=== PATIENT | female | born 1995 | race Caucasian/White ===

== ENCOUNTER 2020-09-29 00:26 | Day surgery (SDC) | payer OTHER, SELFPAY ==
[2020-09-11 14:04] VITALS: BMI 22.6
[2020-09-29 06:36] VITALS: PULSE 86; RESP 18; TEMP 36.1; O2SAT 100; BMI 20.5
[2020-09-29] MEDS: LACTATED RINGERS 1,000 ML 150 ML IV CONT (06:46)
--- NOTE | 2020-09-29 07:57 | WPDGICN ---
Assessment and Plan Assessment and plan (1) Abdominal pain: Qualifiers: Abdominal location: lower abdomen, unspecified Qualified Code(s): R10.30 - Lower abdominal pain, unspecified Code(s): R10.9 - Unspecified abdominal pain Status: Acute Assessment and Plan: Patient has suprapubic abdominal pain. Bloating and cramping in nature. Agree with trial of Bentyl. Will add fiber. Colonoscopy has been arranged will be performed today to exclude organic disease. Irritable bowel syndrome could be a possibility. (2) Loose stools: Code(s): R19.5 - Other fecal abnormalities Status: Acute Assessment and Plan: Patient with intermittent diarrhea. Appears most consistent with irritable bowel syndrome. Patient does have a family history of ulcerative colitis in a more distant history of colon cancer. Plan is for colonoscopy at this time. Plan is for a trial of fiber with supplementation. Further recommendations may be given after endoscopy. GI Consult Note Consult date/time: 09/29/20 07:57 HPI: Erica Wiley is a 24 year old female Presents for colonoscopy. Patient has had significant diarrhea over the last 1 year. Occurs intermittently. She denies any bleeding. She describes a suprapubic abdominal pain. This is crampy in feels bloated. No help with Gas-X. No help with trial of probiotics. She has taken Bentyl and Imodium with some relief. Her family history is significant her father had ulcerative colitis. Grandfather had colon cancer. Patient presents today for colonoscopy because of ongoing abdominal complaints. Review of Systems Review of Systems: All systems reviewed & are unremarkable except as noted in HPI and below PMFSH Past Medical History Medical History Anxiety Depressed Depression GERD (gastroesophageal reflux disease) Tobacco abuse Surgical History Surgical History No history of previous surgery Family History Family History Father Alcohol abuse Depression Anxiety Mother Alcohol abuse Depression Anxiety Ulcerative colitis Sibling Asthma Depression Anxiety Grandparent Alcohol abuse Diabetes mellitus Hypertension Cerebrovascular accident Stomach ulcer Colon cancer Thyroid condition Acute Crohn's disease Social History Social History Social History: Single. Lives with her brother, [id number] and their 2 children in [place]. Originally from [place], [place] moved here 10/2019. 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 Smoking status: Current every day smoker Tobacco type: e-cigarettes/vaping Additional smoking assessment comments: Vaping for 1 year Alcohol intake: current Alcohol use details: OCCATIONALLY Substance use: current Substance use type: marijuana Living arrangements: with roommate(s) Gender identity (if verbalized by the patient): Female Spiritual care concerns: No Meds Home Medications and Allergies Home Medications Medication Instructions Recorded Confirmed Type levonorgestrel 1 device INTRAUTERINE ONCE 07/03/20 09/29/20 History vsamireb-hvp-mxvy-FA-Ca carb-vit K 1 tablet PO DAILY 07/03/20 09/29/20 History 18 mg iron-400 mcg-500 mg tablet spironolactone 100 mg tablet 100 mg PO DAILY 07/03/20 09/29/20 History fluoxetine 20 mg capsule 20 mg PO DAILY #90 cap 07/31/20 09/29/20 Rx dicyclomine 20 mg tablet 20 mg PO QID PRN #60 tablet 08/27/20 09/29/20 Rx dextroamphetamine-amphetamine 5 mg 5 mg PO BID #60 tablet 09/18/20 09/29/20 Rx tablet Allergies Allergy/AdvReac Type Severity Reaction Status Date / Time No Known Drug Allergies Allergy Unknown none Verified 09/29/20 06:34 Vital Signs Vital Signs - 24 hr
[2020-09-29 08:00] VITALS: BP 102/62; PULSE 75; RESP 14; O2SAT 98
[2020-09-29 08:10] VITALS: BP 103/60; PULSE 66; RESP 16; O2SAT 99
[2020-09-29 08:20] VITALS: BP 95/59; PULSE 51; RESP 20; O2SAT 100
--- NOTE | 2020-10-19 11:30 | WPDANESEPPF ---
Anes - Initial Pre Proc Eval Procedure: Operation Date: 09/29/20 07:30 Proposed Procedures p Colonoscopy - Nik Miranda MD Date/Time: 10/19/20 11:30 Surgeon: Nik Miranda MD Pre Op Diagnosis: Diarrhea Patient Data Age: 25 Gender: F Height: 1.65 m Weight: 55.8 kg Last Vital Signs Temp 97 F L 09/29/20 06:36 Pulse 51 L 09/29/20 08:20 Resp 20 09/29/20 08:20 BP 95/59 L 09/29/20 08:20 Pulse Ox 100 09/29/20 08:20 Allergies Allergy/AdvReac Type Severity Reaction Status Date / Time No Known Drug Allergies Allergy Unknown none Verified 10/16/20 08:16 Home Medications Medication Instructions Recorded Confirmed Type levonorgestrel 1 device INTRAUTERINE ONCE 07/03/20 10/16/20 History wfluizsk-qfb-azmd-FA-Ca carb-vit K 1 tablet PO DAILY 07/03/20 10/16/20 History 18 mg iron-400 mcg-500 mg tablet fluoxetine 20 mg capsule 20 mg PO DAILY #90 cap 07/31/20 10/16/20 Rx dicyclomine 20 mg tablet 20 mg PO QID PRN #60 tablet 08/27/20 10/16/20 Rx dextroamphetamine-amphetamine 5 mg 5 mg PO BID #60 tablet 10/16/20 10/16/20 Rx tablet Patient hx anesthesia problems: none Family hx anesthesia problems: none PMFSH Past Medical History Medical History Anxiety Depressed Depression GERD (gastroesophageal reflux disease) Tobacco abuse Surgical History Surgical History No history of previous surgery Family History Family History Father Alcohol abuse Depression Anxiety Mother Alcohol abuse Depression Anxiety Ulcerative colitis Sibling Asthma Depression Anxiety Grandparent Alcohol abuse Diabetes mellitus Hypertension Cerebrovascular accident Stomach ulcer Colon cancer Thyroid condition Acute Crohn's disease Social History Social History Social History: Single. Lives with her brother, [id number] and their 2 children in [place]. Originally from [place], [place] moved here 10/2019. 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 Smoking status: Current every day smoker Tobacco type: e-cigarettes/vaping Additional smoking assessment comments: Vaping for 1 year Alcohol intake: current Alcohol use details: OCCATIONALLY Substance use: current Substance use type: marijuana Gender identity (if verbalized by the patient): Female Spiritual care concerns: No Anes - Eval Final PreProcedure Day of Procedure 10/19/20 11:30 Patient weight: normal Heart: regular rate and rhythm Lungs: clear to auscultation Airway: Mallampati scale class II Neurological: alert and oriented ASA classification: II Emergent: no Anesthetic plan: proceed Anesthesia type and monitoring: general GIVS and standard monitoring Informed Consent: The patient's anesthetic plan and its attendant risks and benefits were discussed with the patient/family/POA. Questions were solicited and answers provided to the satisfaction of the patient/family/POA.
== END 2020-09-29 08:37 | disposition home or self-care (01) ==
PROVIDERS: PCP Family Medicine; Visit Provider Internal Medicine Gastroenterology
PROC: 0DJD8ZZ Inspection of Lower Intestinal Tract, Via Natural or Artificial Opening Endoscopic (ICD-10-PCS; CPT 45378; principal; 2020-09-29 07:30)
DX: R19.7 Diarrhea, unspecified (principal); R10.9 Unspecified abdominal pain; F41.8 Other specified anxiety disorders; K21.9 Gastro-esophageal reflux disease without esophagitis; F17.290 Nicotine dependence, other tobacco product, uncomplicated; F12.90 Cannabis use, unspecified, uncomplicated
CPT/HCPCS: 45380; 88305; J2704; J7120

== ENCOUNTER 2021-02-14 11:51 | Emergency (ER) | payer OTHER, SELFPAY ==
--- NOTE | ~2021-02-14 | US_ITS ---
EXAMINATION: US pelvic complete w TV EXAM DATE: 02/14/2021 13:54 INDICATION: Pelvic pain for 5 days. IUD. TECHNIQUE: Pelvic transabdominal and transvaginal sonogram was performed. There are multiple graysca le and Doppler images available for interpretation. There is no prior study for comparison. FINDINGS: Uterus measures 7.0 x 4.5 x 3.7 cm, with IUD centrally located inside the endometrial cavi ty. Uterus is anteverted. Endometrial stripe measures 6 mm, within normal limits. There is no free pelvic fluid. Right adnexa: The ovary measures 1.9 x 2.5 x 1.9 cm and is morphologically normal. Ovarian vascular f low confirmed. Left adnexa: The ovary measures 4.6 x 5.5 x 3.9 cm, with complex cystic lesion measuring 4.3 x 4.6 x 3.2 cm, appearance most consistent with hemorrhagic cyst. Ovarian vascular flow confirmed. IMPRESSION: 1. Left ovarian complex cystic lesion most likely hemorrhagic cyst; consider 6 week follow-up pelvic sonogram. 2. IUD in position. Reviewed, dictated and finalized at location A. 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
[2021-02-14 11:59] VITALS: BP 118/65; PULSE 90; RESP 17; TEMP 36.6; O2SAT 100
[2021-02-14 13:03] LABS: Basophils Percent Auto 0.5 % (0.2-1.2); Eosinophils Absolute Auto 0.1 K/mm3 (0-0.3); Eosinophils Percent Auto 1.1 % (0-4.4); Hematocrit 37.6 % (37.0-47.0); Hemoglobin 12.8 g/dL (12.0-15.0); Immature Granulocyte Absolute 0.02 K/mm3 (0.00-0.031); Immature Granulocyte Percent A 0.4 % (0-0.5); Lymphocytes Absolute Auto 1.63 K/mm3 (0.9-3.2); Lymphocytes Percent Auto 28.7 % (18.3-44.2); Mean Corpuscular Hemoglobin 31.9 pg (26-34); Mean Corpuscular Volume 93.8 fl (80-100); Mean Platelet Volume 9.8 fl (7.4-10.4); Monocytes Absolute Auto 0.3 K/mm3 (0.1-0.6); Monocytes Percent Auto 5.1 % (2.6-8.5); Neutrophils Absolute Auto 3.6 K/mm3 (1.3-6.7); Neutrophils Percent Auto 64.2 % (45.5-73.1); Platelet Count Result 181 k/mm3 (150-375); Red Blood Count 4.01 M/mm3 (4.2-5.4); Red Cell Distribution Width 12.9 % (11.5-14.5); White Blood Count 5.7 K/mm3 (4.5-10.0)
--- NOTE | 2021-02-14 13:03 | ED.FEMALEGU ---
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 Does report a history of chronic GI issues, so initially did not think anything of this. Reports a dull achy pain that has been constant in her pelvis. She was unable to feel her IUD strings today which prompted her to be seen. Does not think she has risk factors for STDs. Denies fever, vomiting, dysuria, hematuria. Related Data Home Medications Medication Instructions Recorded Confirmed levonorgestrel 1 device INTRAUTERINE ONCE 07/03/20 10/16/20 dvgtsckb-cfd-lzjb-FA-Ca carb-vit K 1 tablet PO DAILY 07/03/20 10/16/20 18 mg iron-400 mcg-500 mg tablet Allergies Allergy/AdvReac Type Severity Reaction Status Date / Time No Known Drug Allergies Allergy Unknown none Verified 02/14/21 11:59 Review of Systems Review of Systems: CONSTITUTIONAL: Denies fever GASTROINTESTINAL: Reports abdominal pain. Denies nausea, vomiting, or diarrhea. GENITOURINARY: Denies dysuria or hematuria. SKIN: Denies rash All systems reviewed & are unremarkable except as noted in HPI and below PMFSH Past Medical History Medical History Anxiety Depressed Depression GERD (gastroesophageal reflux disease) Tobacco abuse Surgical History Surgical History No history of previous surgery Family History Family History Father Alcohol abuse Depression Anxiety Mother Alcohol abuse Depression Anxiety Ulcerative colitis Sibling Asthma Depression Anxiety Grandparent Alcohol abuse Diabetes mellitus Hypertension Cerebrovascular accident Stomach ulcer Colon cancer Thyroid condition Acute Crohn's disease Social History Social History Social History: Single. Lives with her brother, [id number] and their 2 children in [place]. Originally from [place], [place] moved here 10/2019. 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 Smoking status: Current every day smoker Tobacco type: e-cigarettes/vaping Additional smoking assessment comments: Vaping for 1 year Alcohol intake: current Alcohol use details: OCCATIONALLY Substance use: current Substance use type: marijuana Gender identity (if verbalized by the patient): Female Spiritual care concerns: No Exam Narrative: GENERAL: Well-appearing, well-nourished, and in no acute distress. HEAD: Normocephalic, atraumatic. EYES: EOMI. CHEST: Clear to auscultation. No respiratory distress. No wheezes rales or rhonchi HEART: Regular rate and rhythm. No murmur heard. Normal peripheral pulses. ABDOMEN: Soft, nontender, nondistended, normal active bowel sounds. No CVA tenderness EXTREMITIES: Normal range of motion. No edema. SKIN: Warm, dry, no rash. NEURO: No focal deficits. Alert and oriented x3. PSYCH: Normal mood and affect Course Consultations Consultation #1: Spoke with Dr. Dickerson about patient and work-up who will follow-up in clinic. Date: 02/14/21 Time: 15:07 Vital Signs Vital signs: Vital Signs Temperature 97.8 F 02/14/21 11:59 Pulse Rate 90 02/14/21 11:59 Respiratory Rate 17 02/14/21 11:59 Blood Pressure 118/65 02/14/21 11:59 Pulse Oximetry 100 02/14/21 11:59 Temperature 97.8 F 02/14/21 11:59 Pulse Rate 90 02/14/21 11:59 Respiratory Rate 17 02/14/21 11:59 Blood Pressure 118/65 02/14/21 11:59 Pulse Oximetry 100 02/14/21 11:59 MDM - Female Genitourinary MDM Narrative Medical decision making narrative: Patient agata
[2021-02-14 13:14] LABS: Add Urine Microscopic? YES; Appearance Urine Clear (Clear); Bacteria Urine Trace /hpf; Bilirubin Urine Negative (Negative); Blood Urine 1+ (Negative); Color Urine Straw (Yellow); Glucose Urine UA Negative (Negative); Ketones Urine Negative (Negative); Leukocyte Esterase Ur Negative LEU/UL (Negative); Mucus Urine Rare /lpf; Nitrate Urine Negative (Negative); Protein Urine Negative (Negative); Specific Grav Ur 1.008 (1.001-1.035); Squamous Epithelial Cell Urine Occasional /hpf (Few); Urobilinogen Urine Negative mg/dL (<2.0); WBC Urine 0-3 /hpf
[2021-02-14 13:21] LABS: Alanine Aminotransferase 13 U/L (4-35); Albumin Level 4.4 g/dL (3.5-5.1); Alkaline Phosphatase 54 U/L (38-126); Anion Gap 4 mmol/L (8-16); Aspartate Amino Transferase 22 U/L (14-36); Bilirubin,Total 0.9 mg/dL (0.2-1.3); Blood Urea Nitrogen 10 mg/dL (7-17); Calcium 9.5 mg/dL (8.4-10.2); Carbon Dioxide 28 mmol/L (22-30); Chloride 106 mmol/L (98-107); Estimated CRCL calculation 95 ml/min; Estimated Glomerular Filt Rate > 60; Glucose 98 mg/dL (65-110); Lipase 55 U/L (23-300); Potassium 4.3 mmol/L (3.4-5.0); Sodium 138 mmol/L (137-145)
[2021-02-14 15:19] VITALS: BP 98/73; PULSE 73; RESP 16; O2SAT 98
== END 2021-02-14 15:20 | disposition home or self-care (01) ==
PROVIDERS: Physician Assistant; Emergency Provider Emergency Medicine; PCP Family Medicine
DX: N83.202 Unspecified ovarian cyst, left side (principal); K21.9 Gastro-esophageal reflux disease without esophagitis; F17.290 Nicotine dependence, other tobacco product, uncomplicated; Z97.5 Presence of (intrauterine) contraceptive device
CPT/HCPCS: 36415; 76830; 76856; 80053; 81001; 81025; 83690; 85025; 87070; 87491; 87591; 87808; 99284

== ENCOUNTER 2022-07-08 11:05 | Emergency (ER) | payer OTHER, SELFPAY ==
--- NOTE | ~2022-07-08 | CT_ITS ---
EXAMINATION: CT abdomen pelvis wo con DATE: 07/08/2022 15:13 INDICATION: Kidney stone TECHNIQUE: Computed tomography (CT) of the abdomen and pelvis was performed without intravenous contr ast. The dose-length product was 192.05 mGy-cm. Automated exposure control and iterative reconstructi on technique were employed. COMPARISON: None. FINDINGS: Lung bases are unremarkable. Heart size normal. No significant pleural or pericardial effus ion. There is an IUD in the endometrium. Nonobstructive bowel gas pattern. No significant vascular ab normality. The liver, spleen, pancreas, adrenal glands are unremarkable. There are small nonobstructing bilatera l renal stones measuring 3 mm or less. No significant hydronephrosis. There is a bladder stone measur ing 2 mm. No free air or free fluid. No acute osseous abnormality. IMPRESSION: 1. Nonobstructing bilateral nephrolithiasis. 2: Bladder stone measuring 2 mm. Reviewed, dictated and finalized at location B.
[2022-07-08 11:38] VITALS: BP 109/60; PULSE 100; RESP 16; TEMP 36.9; O2SAT 100
[2022-07-08 11:56] LABS: Basophils Percent Auto 0.3 % (0.2-1.2); Eosinophils Absolute Auto 0.1 K/mm3 (0-0.3); Eosinophils Percent Auto 1.7 % (0-4.4); Hematocrit 38.8 % (37.0-47.0); Hemoglobin 13.2 g/dL (12.0-15.0); Immature Granulocyte Absolute 0.02 K/mm3 (0.00-0.031); Immature Granulocyte Percent A 0.3 % (0-0.5); Lymphocytes Absolute Auto 1.57 K/mm3 (0.9-3.2); Mean Corpuscular Hemoglobin 31.7 pg (26-34); Mean Corpuscular Volume 93.3 fl (80-100); Monocytes Absolute Auto 0.3 K/mm3 (0.1-0.6); Monocytes Percent Auto 5.5 % (2.6-8.5); Neutrophils Absolute Auto 3.8 K/mm3 (1.3-6.7); Neutrophils Percent Auto 65.2 % (45.5-73.1); Platelet Count Result 191 k/mm3 (150-375); Red Blood Count 4.16 M/mm3 (4.2-5.4); Red Cell Distribution Width 12.5 % (11.5-14.5); White Blood Count 5.8 K/mm3 (4.5-10.0)
[2022-07-08 12:05] LABS: Alanine Aminotransferase 19 U/L (6-35); Alkaline Phosphatase 65 U/L (38-126); Anion Gap 10 mmol/L (8-16); Aspartate Amino Transferase 22 U/L (14-36); Bilirubin,Total 1.6 mg/dL (0.2-1.3); Blood Urea Nitrogen 11 mg/dL (7-17); Calcium 9.2 mg/dL (8.4-10.2); Carbon Dioxide 26 mmol/L (22-30); Chloride 104 mmol/L (98-107); Estimated CRCL calculation 94 ml/min; Estimated Glomerular Filt Rate > 60; Glucose 110 mg/dL (65-110); Potassium 3.8 mmol/L (3.4-5.0); Sodium 140 mmol/L (137-145)
[2022-07-08 12:32] LABS: Appearance Urine Cloudy (Clear); Bacteria Urine None Seen /hpf; Bilirubin Urine Negative (Negative); Blood Urine 3+ (Negative); Color Urine Dark Yellow (Yellow); Glucose Urine UA Negative (Negative); Ketones Urine 1+ mg/dL (Negative); Leukocyte Esterase Ur Trace LEU/UL (Negative); Mucus Urine Present /lpf; Need Manual Microscopic Reviewed; Nitrate Urine Negative (Negative); Protein Urine Trace mg/dL (Negative); Specific Grav Ur 1.025 (1.001-1.035); Squamous Epithelial Cell Urine Occasional /hpf (Few)
[2022-07-08 12:34] LABS: Add Urine Microscopic? YES
[2022-07-08 13:11] LABS: Pregnancy On Board Control Positive; Urine Pregnancy Test Negative
[2022-07-08] MEDS: SODIUM CHLORIDE 0.9% IV 1,000 ML 999 ML IV CONT (15:04)
[2022-07-08] MEDS: HYDROmorphone HCL INJ (*CRX) 1 MG/ML SYR 0.5 MG IV PUSH (15:05)
[2022-07-08] MEDS: ONDANSETRON INJ 4 MG/2 ML VIAL IV PUSH (15:05)
--- NOTE | 2022-07-08 15:55 | ED.BACK ---
HPI - Back Pain/Injury General Chief Complaint: Back Pain/Injury Stated Complaint: left flank pain Time Seen by Provider: 07/08/22 14:14 Source: patient Mode of arrival: ambulatory Limitations: no limitations History of Present Illness HPI Narrative: 26 years old white female presented to the ED with pain across lumbar area started 10 AM this morning. Comes in waves, denies aggravating or relieving factors, patient. Yoga stretch over the last 2 days. She remembers the pain sometimes associated with chills, nausea and vomiting, she denies any fever. She denies aggravating or relieving factors. History of kidney stone. Related Data Home Medications Medication Instructions Recorded Confirmed levonorgestrel 17.5 mcg/24 hrs 1 device intrauterine ONCE 07/03/20 05/06/22 (5yrs) 19.5mg intrauterine device (Kyleena) kkgcpaxf-efi-jphn-FA-Ca carb-vit K 1 tablet PO DAILY 07/03/20 05/06/22 18 mg iron-400 mcg-500 mg tablet (One-A-Day Womens Formula) Allergies Allergy/AdvReac Type Severity Reaction Status Date / Time No Known Drug Allergies Allergy Unknown none Verified 05/06/22 09:05 Review of Systems Review of Systems: All systems reviewed & are unremarkable except as noted in HPI and below PMFSH Past Medical History Medical History Anxiety Depression Eczema of right upper extremity GERD (gastroesophageal reflux disease) Ovarian cyst Tobacco abuse Surgical History Surgical History No history of previous surgery Family History Family History Father Alcohol abuse Depression Anxiety Mother Alcohol abuse Depression Anxiety Ulcerative colitis Sibling Asthma Depression Anxiety Grandparent Alcohol abuse Diabetes mellitus Hypertension Cerebrovascular accident Stomach ulcer Colon cancer Thyroid condition Acute Crohn's disease Social History Social History Social History: Single. Lives with Lebron in [place]. Originally from [place], [place] moved here 10/2019. 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 Smoking status: Never smoker Tobacco type: e-cigarettes/vaping Additional smoking assessment comments: Vaping for 1 year Alcohol intake: current Alcohol use details: OCCASIONALLY Substance use: current Substance use type: marijuana Lack of Transportation: No Lack of Food: Never True Current Housing: I Have Housing Concerned About Future Housing: No Difficulty Paying Gas/Electric Bills: No Difficulty Paying for Meds: No Currently Unemployed: No Education: Bachelor's Degree Difficulty w/ Childcare or Family Care: No Living arrangements: with friend(s) Occupation/Education: occupation Gender identity (if verbalized by the patient): Female Sexual Orientation (if Verbalized by the Patient): Straight or Heterosexual Spiritual care concerns: No Agree to blood products: Yes Exam Narrative: General appearance: Well-developed, well-nourished Skin: Normal color Head: Normocephalic, nontraumatic Eyes: Clear conjunctiva ENT: Oropharynx normal, ears normal, nose normal Neck: Supple, nontender Chest and respiratory: Airway patent, no respiratory distress, no accessory muscle use Heart: Regular rate/rhythm Abdomen: Soft, nontender, no organomegaly, quiet bowel sounds, slight tenderness left flank. Vascular: Normal peripheral pulses, normal capillary refill. 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
[2022-07-08 16:17] VITALS: BP 105/70; PULSE 76; RESP 16; O2SAT 100
== END 2022-07-08 16:18 | disposition home or self-care (01) ==
PROVIDERS: Emergency Provider Emergency Medicine; PCP Family Medicine
DX: N20.0 Calculus of kidney (principal); N21.0 Calculus in bladder; K21.9 Gastro-esophageal reflux disease without esophagitis; F41.9 Anxiety disorder, unspecified; F32.A Depression, unspecified
CPT/HCPCS: 36415; 74176; 80053; 81001; 81025; 85025; 87086; 96361; 96374; 96375; 99284; J1170; J2405; J7030

== ENCOUNTER 2023-12-22 12:50 | Outpatient (CLI) | payer OTHER, SELFPAY ==
[2023-12-22 13:50] LABS: Basophils Percent Auto 0.5 % (0.2-1.2); Eosinophils Absolute Auto 0.1 K/mm3 (0-0.3); Eosinophils Percent Auto 1.6 % (0-4.4); Hematocrit 40.5 % (37.0-47.0); Hemoglobin 13.6 g/dL (12.0-15.0); Immature Granulocyte Absolute 0.03 K/mm3 (0.00-0.031); Immature Granulocyte Percent A 0.5 % (0-0.5); Lymphocytes Percent Auto 26.2 % (18.3-44.2); Mean Corpuscular HGB Conc 33.6 g/dl (32-36); Mean Corpuscular Hemoglobin 32.1 pg (26-34); Mean Corpuscular Volume 95.5 fl (80-100); Mean Platelet Volume 10.4 fl (7.4-10.4); Monocytes Absolute Auto 0.3 K/mm3 (0.1-0.6); Monocytes Percent Auto 5.6 % (2.6-8.5); Neutrophils Absolute Auto 3.8 K/mm3 (1.3-6.7); Neutrophils Percent Auto 65.6 % (45.5-73.1); Platelet Count Result 204 k/mm3 (150-375); Red Blood Count 4.24 M/mm3 (4.2-5.4); Red Cell Distribution Width 12.4 % (11.5-14.5); White Blood Count 5.7 K/mm3 (4.5-10.0)
[2023-12-22 14:12] LABS: Vitamin D 25 Hydroxy 29.6 ng/mL
[2023-12-22 14:26] LABS: Alanine Aminotransferase 17 U/L (6-35); Albumin Level 4.9 g/dL (3.5-5.1); Alkaline Phosphatase 54 U/L (38-126); Anion Gap 10 mmol/L (4-12); Aspartate Amino Transferase 48 U/L (14-36); Bilirubin,Total 1.5 mg/dL (0.2-1.3); Blood Urea Nitrogen 11 mg/dL (7-17); Calcium 9.4 mg/dL (8.4-10.2); Carbon Dioxide 26 mmol/L (22-30); Chloride 104 mmol/L (98-107); Cholesterol 157 mg/dL (0-200); Estimated Glomerular Filt Rate > 60; Glucose 97 mg/dL (65-110); HDL Direct 58 mg/dL; Potassium 4.4 mmol/L (3.4-5.0); Sodium 140 mmol/L (137-145); Thyroid Stimulating Hormone Reflex 0.551 uIU/mL (0.465-4.68); Triglycerides 41 mg/dL (<150)
[2023-12-22 14:37] LABS: LDL Cholesterol Direct 73 mg/dL
== END 2023-12-22 12:51 | disposition home or self-care (01) ==
LOC: ANHGOSHLAB 12:52
PROVIDERS: PCP Family Medicine; Visit Provider Nurse Practitioner Family
DX: Z00.00 Encounter for general adult medical examination without abnormal findings (principal); E03.9 Hypothyroidism, unspecified; E55.9 Vitamin D deficiency, unspecified; R73.03 Prediabetes; E78.5 Hyperlipidemia, unspecified; F32.9 Major depressive disorder, single episode, unspecified; F41.9 Anxiety disorder, unspecified; R53.83 Other fatigue; F98.8 Other specified behavioral and emotional disorders with onset usually occurring in childhood and adolescence
CPT/HCPCS: 36415; 80053; 80061; 82306; 82607; 83036; 83735; 84443; 85025

== ENCOUNTER 2024-09-16 16:09 | Emergency (ER) | payer SELFPAY ==
[2024-09-16 16:45] VITALS: BP 129/79; PULSE 86; RESP 16; TEMP 36.4; O2SAT 97
--- NOTE | 2024-09-16 17:32 | PC.NURSE ---
Pt came up to desk stating she is no longer in pain and going to go home but return if sx worsen. exits ED in NAD, steady gait.
== END 2024-09-16 21:24 | disposition left against medical advice (07) ==
LOC: ANHED 20:36
PROVIDERS: PCP Family Medicine
DX: Z53.21 Procedure and treatment not carried out due to patient leaving prior to being seen by health care provider (principal)
CPT/HCPCS: 99199

== ENCOUNTER 2024-09-19 14:05 | Emergency (ER) | payer OTHER, SELFPAY ==
--- NOTE | ~2024-09-19 | CT_ITS ---
CLINICAL INDICATION: Left lower quadrant pain COMPARISON: 07/08/2022. TECHNIQUE: Multiple contiguous axial images of the abdomen and pelvis were performed following the ad ministration of with 100 mL Omnipaque-350 intravenous contrast The dose-length product (DLP) was 226.76 mGy-cm. Automated exposure control and iterative reconstruction technique were employed. FINDINGS/OBSERVATIONS: Visualized lower thorax: The bilateral lung bases are clear. The heart is of normal size, without pericardial effusion. Small hiatal hernia is present. Liver: The liver demonstrates homogeneous enhancement and is not enlarged. Gallbladder and biliary system: The gallbladder is distended, and otherwise unremarkable. Pancreas: The pancreas enhances homogeneously without ductal dilatation. Spleen: The spleen enhances homogeneously and is not enlarged. Kidneys: Nonobstructing 4 and 5 mm calculi within the bilateral kidneys. The remainder of the bilateral kidneys otherwise enhance symmetrically without hydronephrosis or taylor tional renal calculi. Adrenal glands: Unremarkable. Gastrointestinal tract: Fecal stasis within the colon. Appendix: The air-filled appendix is of normal caliber (axial series, images 117 through 126). Vasculature: Extensive bilateral varices within the pelvis for which pelvic congestion syndrome is suspected, and for which clinical correlation is needed. The left gonadal vein (feeding into the left renal vein) is dilated, measuring 6.2 mm in caliber with in the pelvis, markedly enlarged for a patient in the supine position. The right gonadal vein (feeding into the inferior vena cava) measures only 4.7 mm in caliber. Lymph nodes: No pathologically enlarged or morphologically suspicious lymph nodes within the retroperitoneum or at the root of the mesentery. Pelvic structures: The bladder is only minimally distended, and otherwise unremarkable. The uterus is anteverted and anteflexed. Intrauterine device in good position. Redemonstration of involuting right ovarian cyst. Body wall and musculoskeletal: No significant degenerative disease within the lower thoracic or lumbosacral spine. IMPRESSION: Findings within the pelvis for which pelvic congestion syndrome is suspected and for which clinical c orrelation is needed. Additional findings of bilateral nonobstructing renal calculi, as detailed above. Thank you for the opportunity to assist in the care of your patient. For questions or concerns regarding this interpretation, please reach out to me directly at . Reviewed, dictated and finalized at location A. IMPRESSION: Findings within the pelvis for which pelvic congestion syndrome is suspected an d for which clinical correlation is needed. Additional findings of bilateral nonobstructing renal calculi, as detailed libby cameron. Thank you for the opportunity to assist in the care of your patient. For questions or concerns regarding this interpretation, please reach out to me directly at [phone].
--- NOTE | ~2024-09-19 | US_ITS ---
EXAM: PELVIC ULTRASOUND HISTORY: Ovarian torsion . Left-sided pelvic pain with a history of ovarian cyst COMPARISON: 02/14/2021. Reference is also made to the CT examination of the abdomen and pelvis dated 07/08/2022 FINDINGS: UTERUS: 7.7 x 3.8 x 4.1 cm. The uterus is anteverted and anteflexed. The endometrial complex contains an intrauterine device rendering measurements limited. RIGHT OVARY: The right ovary is unremarkable in echogenicity and size measuring 3.6 x 2.8 x 2.7 cm. Dopplerable flow is identified. Involuting cyst within the right ovary measuring 19 mm in greatest dimension. LEFT OVARY: The left ovary is unremarkable in echogenicity and size measuring 3.0 x 2.1 x 3.1 cm Dopplerable flow is identified. Trace free fluid is identified within the posterior cul-de-sac and adjacent to the right ovary. IMPRESSION: Involuting cyst within the right ovary. Trace free fluid within the posterior cul-de-sac and adjacent to the right ovary, likely physiologic. Dilated pelvic tortuous vessels are identified, although no Valsalva images were interrogated. Repeat pelvic ultrasound with interrogation during Valsalva, targeting the pelvic vessels may be perf ormed versus contrast enhanced CT examination of the abdomen and pelvis, for further evaluation. Reviewed, dictated and finalized at location A. IMPRESSION: Involuting cyst within the right ovary. Trace free fluid within the posterior cul-de-sac and adjacent to the right ovar y, likely physiologic. Dilated pelvic tortuous vessels are identified, although no Valsalva images wer e interrogated. Repeat pelvic ultrasound with interrogation during Valsalva, targeting the pelv ic vessels may be performed versus contrast enhanced CT examination of the abdo men and pelvis, for further evaluation.
[2024-09-19 14:06] VITALS: BP 118/78; PULSE 97; RESP 16; TEMP 36.5; O2SAT 98
--- NOTE | 2024-09-19 15:44 | ED.ABDPAIN ---
HPI - Abdominal Pain General Chief Complaint: Abdominal Pain <Vani Mehta MD - Last Filed: 09/19/24 18:59> Stated Complaint: abd paoin <Vani Mehta MD - Last Filed: 09/19/24 18:59> Time Seen by Provider: 09/19/24 15:44 <Vani Mehta MD - Last Filed: 09/19/24 18:59> Source: patient <Vani Mehta MD - Last Filed: 09/19/24 18:59> Mode of arrival: ambulatory <Vani Mehta MD - Last Filed: 09/19/24 18:59> Limitations: no limitations <Vani Mehat MD - Last Filed: 09/19/24 18:59> History of Present Illness HPI narrative: 28 YEARS OLD WHITE FEMALE DROVE HERSELF TO THE EMERGENCY ROOM COMPLAINING OF LEFT LOWER QUADRANT PAIN STARTED 3-4 DAYS AGO S SHEETED WITH NAUSEA, VOMITING ONCE. SIMILAR HISTORY SECONDARY TO OVARIAN CYST. PATIENT HAVE IUD, NEVER BEEN BEFORE. HISTORY OF DEPRESSION AND ANXIETY, SHE VAPES, DRINK ALCOHOL OCCASIONALLY AND TAKES MARIJUANA DAILY. PATIENT DENIES ANY FEVER OR CHILLS OR RADIATION OF PAIN OR VAGINAL BLEEDING OR DISCHARGE. <Vani Mehta MD - Last Filed: 09/19/24 18:59> Related Data Home Medications: Home Medications ?Medication ?Instructions ?Recorded ?Confirmed ?Last Taken ?Type qtsoryck-ndp-[id number]-FA-Ca carb-vit K 1 tablet PO DAILY 07/03/20 03/14/24 09/28/20 History 18 mg iron-400 mcg-500 mg tablet 1 tablet (One-A-Day Womens Formula) B-complex with vitamin C 1 cap PO DAILY 01/03/24 03/14/24 Unknown History levonorgestrel (Mirena) 1 device intrauterine ONCE 02/02/24 03/14/24 Unknown History <Vani Mehta MD - Last Filed: 09/19/24 18:59> Allergies/Adverse Reactions: Allergies Allergy/AdvReac Type Severity Reaction Status Date / Time No Known Drug Allergies Allergy Unknown none Verified 09/19/24 14:07 <Vani Mehta MD - Last Filed: 09/19/24 18:59> Review of Systems Review of Systems: All systems reviewed & are unremarkable except as noted in HPI and below <Vani Mehta MD - Last Filed: 09/19/24 18:59> [facility] Past Medical History Medical History: Medical History Depression with anxiety Mild vitamin D deficiency Dysuria Eczema of right upper extremity Ovarian cyst Tobacco abuse Depression GERD (gastroesophageal reflux disease) Anxiety <Vani Mehta MD - Last Filed: 09/19/24 18:59> Surgical History Surgical History: Surgical History No history of previous surgery <Vani Mehta MD - Last Filed: 09/19/24 18:59> Family History Family History: Family History Father Alcohol abuse Depression Anxiety Mother Alcohol abuse Depression Anxiety Ulcerative colitis Sibling Asthma Depression Anxiety Grandparent Alcohol abuse Diabetes mellitus Hypertension Cerebrovascular accident Stomach ulcer Colon cancer Thyroid condition Acute Crohn's disease <Vani Mehta MD - Last Filed: 09/19/24 18:59> Social History Social History: Social History Social History: Single. Lives with Lebron in [place]. Originally from [place], [place] moved here 10/2019. 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 Caffeine-daily Smoking status: Current some day smoker Tobacco type: e-cigarettes/vaping Additional smoking assessment comments: Vaping for 1 year Alcohol intake: current Alcohol use details: OCCASIONALLY Substance use: current Substance use type: marijuana Do You Feel Safe in your Home?: Yes Lack of Transportation: No Lack of Food: Never True Current Housing: I Have Housing Concerned About Future Housing: No Difficulty Paying Gas/Electric Bills: No Difficulty Paying for Meds: YES Currently Unemployed: No Education: Bachelor's Degree Difficulty w/ Childcare or Family Care: No Living arrangements: with friend(s) Occupation/Education: occupation Gender identity (if verbalized by the patient): Female Sexual Orientation (if Verbalized by the Patient): Straight or Heterosexual Spiritual care concerns: No Agree to blood products: Yes <Vani Mehta MD - Last Filed: 09/19/24 18:59> Exam Narrative: GENERAL APPEARANCE: WELL-DEVELOPED, WELL-NOURISHED SKIN: NORMAL COLOR HEAD: NORMOCEPHALIC, NONTRAUMATIC EYES: CLEAR CONJUNCTIVA ENT: OROPHARYNX NORMAL, EARS NORMAL, NOSE NORMAL NECK: SUPPLE, NONTENDER CHEST AND RESPIRATORY: AIRWAY PATENT, NO RESPIRATORY DISTRESS, NO ACCESSORY MUSCLE USE HEART: REGULAR RATE/RHYTHM ABDOMEN: SOFT, LEFT LOWER QUADRANT TENDERNESS, NO ORGANOMEGALY, QUIET BOWEL SOUNDS MUSCULOSKELETAL: NORMAL RANGE OF MOTION, NONTENDER BACK NEUROLOGIC: ALERT AND ORIENTED ?3, 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 TORRES AT SHIFT CHANGE, AWAITING IMAGING, DISPOSITION. PATIENT BEEN RESTING QUIETLY IN THE EMERGENCY ROOM WITHOUT ANY ISSUES OR PROBLEMS. <aVni Mehta MD - Last Filed: 09/19/24 18:59> Date: 09/19/24 <Vani Mehta MD - Last Filed: 09/19/24 18:59> Time: 18:59 <Vani Mehta MD - Last Filed: 09/19/24 18:59> Vital Signs Vital signs: Vital Signs Temperature 97.7 F 09/19/24 14:06 Pulse Rate 97 09/19/24 14:06 Respiratory Rate 16 09/19/24 14:06 Blood Pressure 118/78 09/19/24 14:06 Pulse Oximetry 98 09/19/24 14:06 Temperature 97.7 F 09/19/24 14:06 Pulse Rate 97 09/19/24 14:06 Respiratory Rate 16 09/19/24 14:06 Blood Pressure 118/78 09/19/24 14:06 Pulse Oximetry 98 09/19/24 14:06 <Vani Mehta MD - Last Filed: 09/19/24 18:59> Vital Signs Temperature 97.7 F 09/19/24 14:06 Pulse Rate 97 09/19/24 14:06 Respiratory Rate 16 09/19/24 14:06 Blood Pressure 118/78 09/19/24 14:06 Pulse Oximetry 98 09/19/24 14:06 Temperature 97.7 F 09/19/24 14:06 Pulse Rate 97 09/19/24 14:06 Respiratory Rate 16 09/19/24 14:06 Blood Pressure 118/78 09/19/24 14:06 Pulse Oximetry 98 09/19/24 14:06 <Ulisses Torres MD - Last Filed: 09/19/24 23:56> MDM - Abdominal Pain MDM Narrative Medical decision making narrative: PATIENT PRESENTS WITH LEFT LOWER QUADRANT PAIN VITAL SIGNS ARE STABLE PHYSICAL EXAMINATION CONSISTENT WITH TENDERNESS OF THE LEFT LOWER QUADRANT, NO GUARDING OR REBOUND DIFFERENTIAL DIAGNOSIS INCLUDE OVARIAN CYST, OVARIAN TORSION, PID, COLITIS, DIVERTICULITIS, URINARY TRACT INFECTION, KIDNEY STONE BLOOD WORKUP TODAY INCLUDES CBC, CMP, LIPASE SHOWED WBC OF 7.4, OTHERWISE WITHIN NORMAL LIMIT URINALYSIS SHOWED NO EVIDENCE OF INFECTION PELVIC ULTRASOUND SHOWED <Vani Mehta MD - Last Filed: 09/19/24 18:59> PATIENT PRESENTS WITH LEFT LOWER QUADRANT PAIN VITAL SIGNS ARE STABLE PHYSICAL EXAMINATION CONSISTENT WITH TENDERNESS OF THE LEFT LOWER QUADRANT, NO GUARDING OR REBOUND DIFFERENTIAL DIAGNOSIS INCLUDE OVARIAN CYST, OVARIAN TORSION, PID, COLITIS, DIVERTICULITIS, URINARY TRACT INFECTION, KIDNEY STONE BLOOD WORKUP TODAY INCLUDES CBC, CMP, LIPASE SHOWED WBC OF 7.4, OTHERWISE WITHIN NORMAL LIMIT URINALYSIS SHOWED NO EVIDENCE OF INFECTION PELVIC ULTRASOUND SHOWED --- 20-year-old female presents emergency department for evaluation for abdominal pain. Ultrasound was concerning for pelvic congestion and daytime physician did order a CT for further evaluation and no additional findings were found. At time of sign-out anticipated disposition was discharged home. <Ulisses Torres MD - Last Filed: 09/19/24 23:56> Differential Diagnosis Differential diagnosis: Likely other ( ABOVE) <Vani Mehta MD - Last Filed: 09/19/24 18:59> Medical Records Attestation: I reviewed the patient's medical records. <Vani Mehta MD - Last Filed: 09/19/24 18:59> Lab Data Attestation: I reviewed the patient's lab results. <Vani Mehta MD - Last Filed: 09/19/24 18:59> Result diagrams: 09/19/24 15:48 09/19/24 15:48 <Vani Mehta MD - Last Filed: 09/19/24 18:59> Labs: Lab Results 09/19/24 09/19/24 Range/Units 15:48 15:55 WBC 7.4 (4.5-10.0) K/mm3 RBC 4.13 L (4.2-5.4) M/mm3 Hgb 13.2 (12.0-15.0) g/dL Hct 39.3 (37.0-47.0) % MCV 95.2 (80-100) fl MCH 32.0 (26-34) pg MCHC 33.6 (32-36) g/dl RDW 12.4 (11.5-14.5) % Plt Count 192 (150-375) k/mm3 MPV 10.0 (7.4-10.4) fl Immature Gran % (Auto) 0.7 H (0-0.5) % Neut % (Auto) 63.6 (45.5-73.1) % Lymph % (Auto) 27.7 (18.3-44.2) % Douglas % (Auto) 6.1 (2.6-8.5) % Eos % (Auto) 1.4 (0-4.4) % Baso % (Auto) 0.5 (0.2-1.2) % Lymph # (Auto) 2.04 (0.9-3.2) K/mm3 Douglas # (Auto) 0.5 (0.1-0.6) K/mm3 Eos # (Auto) 0.1 (0-0.3) K/mm3 Baso # (Auto) 0.0 (0.0-0.1) K/mm3 Abs Immat Gran (auto) 0.05 H (0.00-0.031) K/mm3 Absolute Neuts (auto) 4.7 (1.3-6.7) K/mm3 Absolute Nucleated RBC 0.000 (0.0-0.012) K/mm3 Nucleated RBC % 0.0 (0.0-0.2) % Sodium 138 (137-145) mmol/L Potassium 4.1 (3.4-5.0) mmol/L Chloride 106 (98-107) mmol/L Carbon Dioxide 24 (22-30) mmol/L Anion Gap 8 (4-12) mmol/L BUN 10 (7-17) mg/dL Creatinine 0.65 L (0.7-1.0) mg/dL Estim Creat Clear Calc 99 ml/min Estimated GFR > 60 (59 - ) Glucose 96 (65-110) mg/dL Calcium 9.6 (8.4-10.2) mg/dL Total Bilirubin 0.7 (0.2-1.3) mg/dL AST 29 (14-36) U/L ALT 21 (6-35) U/L Alkaline Phosphatase 40 (38-126) U/L Total Protein 7.6 (6.3-8.2) g/dL Albumin 4.5 (3.5-5.1) g/dL Lipase 46 (23-300) U/L Urine Color Yellow (Yellow) Urine Appearance Clear (Clear) Urine pH 8.0 (5.0-9.0) Ur Specific [place] 1.007 (1.001-1.035) Urine Protein Negative (Negative) mg/dL Urine Glucose (UA) Negative (Negative) mg/dL Urine Ketones Negative (Negative) mg/dL Ur Blood (Man) Negative (Negative) Urine Nitrate Negative (Negative) Urine Bilirubin Negative (Negative) Urine Urobilinogen 0.2 (<2.0) mg/dL Leukocyte Esterase Rfl Negative (Negative) FERMIN/UL POC Urine HCG, Qual Negative (Negative) <Vani Mehta MD - Last Filed: 09/19/24 18:59> Lab Results 09/19/24 09/19/24 Range/Units 15:48 15:55 WBC 7.4 (4.5-10.0) K/mm3 RBC 4.13 L (4.2-5.4) M/mm3 Hgb 13.2 (12.0-15.0) g/dL Hct 39.3 (37.0-47.0) % MCV 95.2 (80-100) fl MCH 32.0 (26-34) pg MCHC 33.6 (32-36) g/dl RDW 12.4 (11.5-14.5) % Plt Count 192 (150-375) k/mm3 MPV 10.0 (7.4-10.4) fl Immature Gran % (Auto) 0.7 H (0-0.5) % Neut % (Auto) 63.6 (45.5-73.1) % Lymph % (Auto) 27.7 (18.3-44.2) % Douglas % (Auto) 6.1 (2.6-8.5) % Eos % (Auto) 1.4 (0-4.4) % Baso % (Auto) 0.5 (0.2-1.2) % Lymph # (Auto) 2.04 (0.9-3.2) K/mm3 Douglas # (Auto) 0.5 (0.1-0.6) K/mm3 Eos # (Auto) 0.1 (0-0.3) K/mm3 Baso # (Auto) 0.0 (0.0-0.1) K/mm3 Abs Immat Gran (auto) 0.05 H (0.00-0.031) K/mm3 Absolute Neuts (auto) 4.7 (1.3-6.7) K/mm3 Absolute Nucleated RBC 0.000 (0.0-0.012) K/mm3 Nucleated RBC % 0.0 (0.0-0.2) % Sodium 138 (137-145) mmol/L Potassium 4.1 (3.4-5.0) mmol/L Chloride 106 (98-107) mmol/L Carbon Dioxide 24 (22-30) mmol/L Anion Gap 8 (4-12) mmol/L BUN 10 (7-17) mg/dL Creatinine 0.65 L (0.7-1.0) mg/dL Estim Creat Clear Calc 99 ml/min Estimated GFR > 60 (59 - ) Glucose 96 (65-110) mg/dL Calcium 9.6 (8.4-10.2) mg/dL Total Bilirubin 0.7 (0.2-1.3) mg/dL AST 29 (14-36) U/L ALT 21 (6-35) U/L Alkaline Phosphatase 40 (38-126) U/L Total Protein 7.6 (6.3-8.2) g/dL Albumin 4.5 (3.5-5.1) g/dL Lipase 46 (23-300) U/L Urine Color Yellow (Yellow) Urine Appearance Clear (Clear) Urine pH 8.0 (5.0-9.0) Ur Specific [place] 1.007 (1.001-1.035) Urine Protein Negative (Negative) mg/dL Urine Glucose (UA) Negative (Negative) mg/dL Urine Ketones Negative (Negative) mg/dL Ur Blood (Man) Negative (Negative) Urine Nitrate Negative (Negative) Urine Bilirubin Negative (Negative) Urine Urobilinogen 0.2 (<2.0) mg/dL Leukocyte Esterase Rfl Negative (Negative) FERMIN/UL POC Urine HCG, Qual Negative (Negative) <Ulisses Torres MD - Last Filed: 09/19/24 23:56> Imaging Data Radiologist's impression: ITS Impressions Pelvic/Transvag US 09/19/24 18:30 IMPRESSION: Involuting cyst within the right ovary. Trace free fluid within the posterior cul-de-sac and adjacent to the right ovary, likely physiologic. Dilated pelvic tortuous vessels are identified, although no Valsalva images were interrogated. Repeat pelvic ultrasound with interrogation during Valsalva, targeting the pelvic vessels may be performed versus contrast enhanced CT examination of the abdomen and pelvis, for further evaluation. Abdomen/Pelvis CT 09/19/24 20:09 IMPRESSION: Findings within the pelvis for which pelvic congestion syndrome is suspected and for which clinical correlation is needed. Additional findings of bilateral nonobstructing renal calculi, as detailed above. Thank you for the opportunity to assist in the care of your patient. For questions or concerns regarding this interpretation, please reach out to me directly at [phone]. <Vani Mehta MD - Last Filed: 09/19/24 18:59> ITS Impressions Pelvic/Transvag US 09/19/24 18:30 IMPRESSION: Involuting cyst within the right ovary. Trace free fluid within the posterior cul-de-sac and adjacent to the right ovary, likely physiologic. Dilated pelvic tortuous vessels are identified, although no Valsalva images were interrogated. Repeat pelvic ultrasound with interrogation during Valsalva, targeting the pelvic vessels may be performed versus contrast enhanced CT examination of the abdomen and pelvis, for further evaluation. Abdomen/Pelvis CT 09/19/24 20:09 IMPRESSION: Findings within the pelvis for which pelvic congestion syndrome is suspected and for which clinical correlation is needed. Additional findings of bilateral nonobstructing renal calculi, as detailed above. Thank you for the opportunity to assist in the care of your patient. For questions or concerns regarding this interpretation, please reach out to me directly at [phone]. <Ulisses Torres MD - Last Filed: 09/19/24 23:56> Discharge Plan Discharge Clinical Impression: Abdominal pain, left lower quadrant <Vani Mehta MD - Last Filed: 09/19/24 18:59> Patient Disposition: Home <Vani Mehta MD - Last Filed: 09/19/24 18:59> Condition: Stable <Vani Mehta MD - Last Filed: 09/19/24 18:59> Instructions: Antibiotic Form, Abdominal Pain (ED) <Vani Mehta MD - Last Filed: 09/19/24 18:59> Additional Instructions: Have close follow-up with your primary care physician. If you have any worsening symptoms then please call or return to the emergency department <Vani Mehta MD - Last Filed: 09/19/24 18:59> Patient Language: Syriac <Vani Mehta MD - Last Filed: 09/19/24 18:59> Prescriptions: No Action One-A-Day Womens Formula 18 mg iron-400 mcg-500 mg tablet 1 tablet PO DAILY triamcinolone acetonide 0.1 % cream 1 applic topical BID Qty: 30 0RF B-complex with vitamin C Capsule 1 cap PO DAILY Mirena 21 mcg/24hr (up to 8 yrs) 52 mg intrauterine device 1 device intrauterine ONCE Rx Instructions: as a single dose atomoxetine 10 mg capsule 20 mg PO QAM 90 Days Qty: 180 1RF fluoxetine 60 mg tablet 60 mg PO QPM Qty: 90 1RF dicyclomine 20 mg tablet 20 mg PO QID PRN (Reason: abdominal discomfort) Qty: 60 2RF clonazepam [Klonopin] 0.5 mg tablet 0.5 mg PO DAILY PRN (Reason: anxiety) Qty: 30 0RF ondansetron 8 mg tablet,disintegrating 8 mg PO Q8H PRN (Reason: nausea and vomiting) Qty: 20 0RF buspirone 5 mg tablet 5 mg PO BID Qty: 60 1RF cholecalciferol (vitamin D3) 1,250 mcg (50,000 unit) tablet 1,250 mcg PO WEEKLY Qty: 12 1RF <Vani Mehta MD - Last Filed: 09/19/24 18:59> Follow-up/Referrals: Kyara Velarde MD [Primary Care Provider] - <Vani Mehta MD - Last Filed: 09/19/24 18:59>
[2024-09-19] MEDS: SODIUM CHLORIDE 0.9% IV 1,000 ML 999 ML IV CONT ×2 (15:54→16:34)
[2024-09-19 15:57] LABS: Add Urine Microscopic? NO; Appearance Urine Clear (Clear); Basophils Percent Auto 0.5 % (0.2-1.2); Bilirubin Urine Negative (Negative); Blood Urine Negative (Negative); Color Urine Yellow (Yellow); Eosinophils Absolute Auto 0.1 K/mm3 (0-0.3); Eosinophils Percent Auto 1.4 % (0-4.4); Glucose Urine UA Negative (Negative); Hematocrit 39.3 % (37.0-47.0); Hemoglobin 13.2 g/dL (12.0-15.0); Immature Granulocyte Absolute 0.05 K/mm3 (0.00-0.031); Immature Granulocyte Percent A 0.7 % (0-0.5); Ketones Urine Negative (Negative); Leukocyte Esterase Ur Negative LEU/UL (Negative); Lymphocytes Absolute Auto 2.04 K/mm3 (0.9-3.2); Lymphocytes Percent Auto 27.7 % (18.3-44.2); Mean Corpuscular HGB Conc 33.6 g/dl (32-36); Mean Corpuscular Volume 95.2 fl (80-100); Monocytes Absolute Auto 0.5 K/mm3 (0.1-0.6); Monocytes Percent Auto 6.1 % (2.6-8.5); Neutrophils Absolute Auto 4.7 K/mm3 (1.3-6.7); Neutrophils Percent Auto 63.6 % (45.5-73.1); Nitrate Urine Negative (Negative); Platelet Count Result 192 k/mm3 (150-375); Protein Urine Negative (Negative); Red Blood Count 4.13 M/mm3 (4.2-5.4); Red Cell Distribution Width 12.4 % (11.5-14.5); Specific Grav Ur 1.007 (1.001-1.035); Urobilinogen Urine 0.2 mg/dL (<2.0); White Blood Count 7.4 K/mm3 (4.5-10.0)
[2024-09-19 15:58] LABS: BEDSIDEPREGUCG Negative (Negative)
[2024-09-19 16:11] LABS: Alanine Aminotransferase 21 U/L (6-35); Albumin Level 4.5 g/dL (3.5-5.1); Alkaline Phosphatase 40 U/L (38-126); Anion Gap 8 mmol/L (4-12); Aspartate Amino Transferase 29 U/L (14-36); Bilirubin,Total 0.7 mg/dL (0.2-1.3); Blood Urea Nitrogen 10 mg/dL (7-17); Calcium 9.6 mg/dL (8.4-10.2); Carbon Dioxide 24 mmol/L (22-30); Chloride 106 mmol/L (98-107); Estimated CRCL calculation 99 ml/min; Estimated Glomerular Filt Rate > 60; Glucose 96 mg/dL (65-110); Lipase 46 U/L (23-300); Potassium 4.1 mmol/L (3.4-5.0); Sodium 138 mmol/L (137-145); Total Protein 7.6 g/dL (6.3-8.2)
[2024-09-19] MEDS: MORPHINE SULFATE (*CRX) 4 MG/ML INJ IV PUSH (16:34)
[2024-09-19] MEDS: ONDANSETRON INJ 4 MG/2 ML VIAL IV PUSH (16:34)
== END 2024-09-19 21:09 | disposition home or self-care (01) ==
PROVIDERS: Emergency Provider Emergency Medicine; PCP Family Medicine
DX: R10.32 Left lower quadrant pain (principal); E55.9 Vitamin D deficiency, unspecified; K21.9 Gastro-esophageal reflux disease without esophagitis; F41.8 Other specified anxiety disorders; F17.290 Nicotine dependence, other tobacco product, uncomplicated; Z97.5 Presence of (intrauterine) contraceptive device; Z79.899 Other long term (current) drug therapy; N20.0 Calculus of kidney; N83.201 Unspecified ovarian cyst, right side
CPT/HCPCS: 36415; 74177; 76830; 76856; 80053; 81003; 81025; 83690; 85025; 96361; 96374; 96375; 99284; J2270; J2405; J7030; Q9967